=== PATIENT | female | born 1970 | race Two or more races ===

== ENCOUNTER 2017-12-03 06:42 | Day surgery (SDC) | payer MEDICAID ==
[~2017-12-03 06:42] MED LIST: Lactated Ringers 1,000 ML IV SCH
[2017-12-03] MEDS ORDERED: fentaNYL 250 MCG/5 ML SDV ONE (07:11)
[2017-12-03] MEDS ORDERED: Midazolam 1 MG/ML 2 ML SDV ONE (07:11)
[2017-12-03] MEDS ORDERED: Lidocaine 2% 5 ML SDV ONE (07:11)
[2017-12-03] MEDS ORDERED: Propofol 200 MG/20 ML SDV ONE (07:11)
[2017-12-03] MEDS ORDERED: Ondansetron 4 MG/2 ML SDV ONE (07:12)
[2017-12-03] MEDS ORDERED: Succinylcholine 200 MG/10 ML MDV ONE (07:12)
[2017-12-03] MEDS ORDERED: Ketorolac 30 MG/ML SDV ONE (07:12)
[2017-12-03] MEDS ORDERED: Dexamethasone 4 MG/ML 5 ML MDV ONE (07:12)
[2017-12-03] MEDS ORDERED: Midazolam 1 MG/ML 2 ML SDV IVPUSH ONE (07:17)
--- NOTE | 2017-12-03 07:17 | PCM.PREANE ---
Preanesthetic Assessment - Anesthesia/Transfusion/Family Hx Anesthesia History: Prior Anesthesia Without Reaction Transfusion History: No Prior Transfusion(s) - Review of Systems General: No Symptoms Pulmonary: No Symptoms Cardiovascular: No Symptoms Gastrointestinal: No Symptoms Neurological: No Symptoms Other: Reports: None - Physical Assessment NPO Status Date: 12/02/17 NPO Status Time: 22:00 Height: 5 ft 4 in Weight: 77.111 kg ASA Class: 2 Mental Status: Alert & Oriented x3 Airway Class: Mallampati = 2 Dentition: Reports: Normal Dentition Thyro-Mental Finger Breadths: 3 Mouth Opening Finger Breadths: 3 ROM/Head Extension: Full Lungs: Clear to Auscultation, Normal Respiratory Effort Cardiovascular: Regular Rate, Regular Rhythm - Allergies Allergies/Adverse Reactions: Allergies Allergy/AdvReac Type Severity Reaction Status Date / Time Penicillins Allergy "mouth Verified 11/27/17 10:46 opens up, unable to close without medication" - Anesthesia Plan Free Text/Narrative:: Pt is very anxious appearing this morning, versed 2mg IVP and famotidine 20mg IVP ordered this AM in pre-op. Pt states she has an active renal stone and has not had any follow-up in the last month. CBC and BMP ordered as well. GETA and Interscalene block explained to the patient as well as risks and benefits of each. At this time the patient agrees and wishes to proceed. - Acknowledgements Anesthesia Type Planned: General Anesthesia, Regional Block Pt an Appropriate Candidate for the Planned Anesthesia: Yes Alternatives and Risks of Anesthesia Discussed w Pt/Guardian: Yes Pt/Guardian Understands and Agrees with Anesthesia Plan: Yes PreAnesthesia Questionnaire HEENT History: Reports: None Cardiovascular History: Reports: None Respiratory History: Reports: None Gastrointestinal History: Reports: GERD, Other (See Below) Other Gastrointestinal History: hx colitis Genitourinary History: Reports: Renal Calculus Musculoskeletal History: Reports: Arthritis, Other (See Below) Other Musculoskeletal History: rt shoulder pain Neurological History: Reports: None Psychiatric History: Reports: Anxiety, Depression Endocrine/Metabolic History: Reports: None Hematologic History: Reports: None Immunologic History: Reports: None Oncologic (Cancer) History: Reports: None Dermatologic History: Reports: None - Infectious Disease History Infectious Disease History: Reports: None - Past Surgical History Head Surgeries/Procedures: Reports: None GI Surgical History: Reports: Cholecystectomy Female Surgical History: Reports: Hysterectomy, Tubal Ligation, Other (See Below) Other Female Surgeries/Procedures: laser of vaginal lesions - SUBSTANCE USE Smoking Status *Q: Never Smoker Recreational Drug Use History: No - HOME MEDS Home Medications: Home Meds Escitalopram Oxalate 20 mg PO DAILY 11/27/17 [History] Linaclotide [Linzess] 72 mcg PO DAILY 11/27/17 [History] Pantoprazole Sodium 40 mg PO DAILY 11/27/17 [History] - CURRENT (IN HOUSE) MEDS Current Meds: Current Medications Hydrocodone Bitart/Acetaminophen ([place] 325-10 Mg) 1 - 2 tab PO Q4H PRN PRN Reason: Pain Clindamycin Phosphate 600 mg/ (Premix) 50 mls @ 100 mls/hr IV ONCALL CORONA Lactated Ringer's (Ringers, Lactated) 1,000 mls @ 100 mls/hr IV ASDIRECTED CORONA Ketorolac Tromethamine (Toradol) 10 mg PO Q6H PRN PRN Reason: Pain Stop: 12/08/17 08:01
[2017-12-03] MEDS ORDERED: Bupivacaine 0.5% 10 ML SDV ONE ×2 (07:19→07:21)
[2017-12-03] MEDS ORDERED: Famotidine 20 MG/2 ML SDV IVPUSH ONE (07:19)
[2017-12-03] MEDS ORDERED: Bupivacaine 25%/EPINEPHrine/PF 30 ML ONE (07:20)
[2017-12-03] MEDS ORDERED: Clindamycin Phosphate in D5W 600 MG in Premix Bag 50 BAG IV SCH ×2 (08:00)
[2017-12-03] MEDS ORDERED: Ketorolac 10 MG Tab PO PRN (08:00)
[2017-12-03] MEDS ORDERED: Acetaminophen/HYDROcodone 325-10 MG Tab PO PRN (08:00)
[2017-12-03 08:05] LABS: CHLORIDE,CL 104 mmol/L (98-107); SODIUM,NA 140 mmol/L (136-145)
[2017-12-03] MEDS ORDERED: fentaNYL 100 MCG/2 ML SDV IVPUSH PRN (09:12)
--- NOTE | 2017-12-03 09:22 | PCM.SN ---
- Free Text/Narrative Note: Right inter-scalene block for post operative pain control: explained procedure and questions answered Sedated with versed and fentanyl supplemental oxygen and monitor on. Skin prep right neck betadine x 3. Stimuplex needle wirh strong biceps twitch at 0.8ma twitch gone at 0.4 returned at 0.6 instilled mixture of 20 ml 0.25% marcaine with epinephrine 1:200K and 20 ml 0.5% marcaine and 8 mg decadron. Patient reports modest decrease in sensation and onset of heaviness. to or 2 for shoulder arthroscopy / GA
--- NOTE | 2017-12-03 09:45 | PCM.OPNOTE ---
- General Post-Op/Procedure Note Date of Surgery/Procedure: 12/03/17 Operative Procedure(s): R shoulder arthroscopy with SAD, debridement of anterior labrum Post-Op Diagnosis: R shoulder impingement. R shoulder degenerative anterior labral tear Anesthesia Technique: General ET Tube, Regional Block Primary Surgeon: Nessa Payne EBAbimbola in mLs: 10 Condition: Good Free Text/Narrative:: #[id number]
[2017-12-03] MEDS: Labetalol 20 MG/4 ML Syringe IVPUSH ONE ×2 (10:36→10:51)
--- NOTE | 2017-12-03 10:58 | PCM.POSTAN ---
POST ANESTHESIA ASSESSMENT - MENTAL STATUS Mental Status: Alert, Oriented - VITAL SIGNS Pulse Rate: 105 SaO2: 95 Resp Rate: 12 Blood Pressure: 121/72 - RESPIRATORY Respiratory Status: Respiratory Rate WNL, Airway Patent, O2 Saturation Stable - CARDIOVASCULAR CV Status: Pulse Rate WNL, Blood Pressure Stable - GASTROINTESTINAL GI Status: No Symptoms - PAIN Pain Score: 0 (block effective) - POST OP HYDRATION Hydration Status: Adequate & Stable
--- NOTE | 2017-12-03 12:10 | OR ---
SURGEON: Nessa Payne MD DATE OF PROCEDURE: 12/03/2017 PREOPERATIVE DIAGNOSIS: Right shoulder impingement syndrome. POSTOPERATIVE DIAGNOSES: 1. Right shoulder impingement syndrome. 2. Right shoulder degenerative anterior labral tear. PROCEDURES: Right shoulder arthroscopy with: 1. Subacromial decompression with release of coracoacromial ligament and acromioplasty. 2. Limited debridement with debridement of degenerative anterior labral tear. HARMONIC ANALYST: Gabi Partida RN. ANESTHESIA: General with interscalene block. ESTIMATED BLOOD LOSS: 10 mL. TOURNIQUET TIME: 0 minutes. COMPLICATIONS: None. DVT PROPHYLAXIS: PAS boots to bilateral lower extremities. IMPLANTS USED: None. BRIEF HISTORY: Shilpi is a 47-year-old female who has had complaint of progressive right shoulder pain over the past 2 years. She has tried conservative treatment, which has not given her lasting relief. Due to her lack of response to conservative treatment, I did recommend surgical intervention. The risks and goals of procedure were discussed with the patient and were documented preoperatively. She agreed to proceed. DESCRIPTION OF PROCEDURE: The patient was properly identified and brought to the operating room. She was transferred from the OR cart and placed on the operating table in supine position. General anesthesia was administered. An interscalene block had been administered preoperatively. After adequate anesthesia was obtained, the patient was placed into a beach-chair position. Care was taken to pad all bony prominences. Her head was secured. The right upper extremity was then prepped in standard fashion using ChloraPrep solution. It was then sterilely draped. A time-out was performed to ensure correct site and procedure. Preoperative antibiotics were given. The surgical site had been marked preoperatively. A marking pen was used to identify the bony landmarks. Approximately 30 mL of normal saline was introduced into the glenohumeral joint. A posterior portal was established. Blunt trocar and cannula were introduced into the glenohumeral joint. Camera, inflow, and outflow were assembled. The rotator interval was visualized. No significant synovitis was noted. An anterior portal was then established in the rotator interval. A probe was inserted. The subscapularis was visualized. No tearing was noted. No loose bodies were identified in the subscapular recess. The anterior labrum was then inspected. Degenerative fraying of the anterior labrum was noted. This was resected with electrocautery. No further instability was noted. The biceps was then inspected. It was pulled into the shoulder joint to examine the distal portion. No synovitis or tearing was noted. The attachment of the glenoid to the superior labrum was also intact. The posterior labrum showed no signs of tearing. Both the glenoid and humeral head were inspected and no degenerative changes were found. The axillary pouch showed no loose bodies or significant synovitis. The arm was then brought into an abducted and externally rotated position. The bare area was noted posteriorly. As I progressed forward, there was good insertion of the cuff with no sign of tearing. The arm was then brought back into a neutral position. Instruments were removed. The blunt trocar and cannula were then introduced into the subacromial space. A lateral portal was established. She did have extensive bursitis, which was resected with a combination of the shaver and electrocautery. She did have a type 2 acromion, which appeared to be causing some impingement anteriorly. The coracoacromial ligament was released. A 5.0 mm siva was then used to perform an acromioplasty. This provided good decompression of the subacromial space. The rotator cuff was then inspected and probed. No tearing or softening was found. The instruments were then removed from the shoulder. The portal sites were closed with 3-0 nylon. Xeroform gauze was placed over the wound and a bulky dressing was applied. She was placed into a sling. She was awakened from her anesthetic and transferred back to the operating room cart. She was brought to recovery room in stable condition. All needle and sponge counts were correct. GAYLE / JOSIE /[id number]
--- NOTE | 2017-12-03 17:29 | PCM48HPAN ---
Post Anesthesia Note - EVALUATION WITHIN 48HRS OF ANESTHETIC Vital Signs in Normal Range: Yes Patient Participated in Evaluation: Yes Respiratory Function Stable: Yes Airway Patent: Yes Cardiovascular Function Stable: Yes Hydration Status Stable: Yes Pain Control Satisfactory: Yes Nausea and Vomiting Control Satisfactory: Yes Mental Status Recovered: Yes Pulse Rate: 105 Resp Rate: 14 Blood Pressure: 121/72
== END 2017-12-03 12:09 | disposition home or self-care (01) ==
LOC: MW.SDS 06:42
PROVIDERS: ATTEND Orthopaedic Surgery
DX: M75.41 Impingement syndrome of right shoulder (principal); M24.111 Other articular cartilage disorders, right shoulder; M75.51 Bursitis of right shoulder; E66.3 Overweight; Z68.29 Body mass index [BMI] 29.0-29.9, adult; F41.9 Anxiety disorder, unspecified; F32.9 Major depressive disorder, single episode, unspecified; K21.9 Gastro-esophageal reflux disease without esophagitis; Z79.899 Other long term (current) drug therapy; Z88.0 Allergy status to penicillin
CPT/HCPCS: 29822; 29826; 36415; 64415; 80048; 85027; J0330; J1100; J1885; J2250; J2405; J2704; J3010; J3490; J7120; 88304